=== PATIENT | male | born 1940 | race Caucasian/White ===

== ENCOUNTER → 2019-01-22 | Outpatient (CLI) | payer MEDICARE, OTHER | END | disposition home or self-care (01) | LOC: PCVCCLINIC 10:00 | PROVIDERS: ATTEND Internal Medicine | DX: I25.10 Atherosclerotic heart disease of native coronary artery without angina pectoris (principal); E78.5 Hyperlipidemia, unspecified; I71.4 Abdominal aortic aneurysm, without rupture; I12.9 Hypertensive chronic kidney disease with stage 1 through stage 4 chronic kidney disease, or unspecified chronic kidney disease; N18.9 Chronic kidney disease, unspecified; J45.909 Unspecified asthma, uncomplicated; Z79.82 Long term (current) use of aspirin; Z88.5 Allergy status to narcotic agent | CPT/HCPCS: 36415; 80061; 93005; G0463 ==

== ENCOUNTER → 2019-02-25 | Outpatient (CLI) | payer MEDICARE, OTHER ==
[~2019-02-25] MED LIST: REGADENOSON 0.4 MG/5 ML DISP.SYRIN. IV ONE
--- NOTE | 2019-02-25 10:07 | PCVCIMAG ---
APPROVED REPORT Indications Stenosis Risk Factors Hyperlipidemia Doppler Spectral Velocity Analysis PSV / EDVPSV / EDV ECA (R) 92 / 10 cm/sECA (L) 75 / 2 cm/s dICA (R) 77 / 26 cm/sdICA (L) 83 / 16 cm/s Karuna (R) 61 / 22 cm/smICA (L) 150 / 32 cm/s pICA (R) 61 / 19 cm/spICA (L) 165 / 48 cm/s Bulb (R) 69 / 10 cm/sBulb (L) 54 / 12 cm/s dCCA (R) 72 / 12 cm/sdCCA (L) 69 / 13 cm/s mCCA (R) 69 / 10 cm/smCCA (L) 91 / 13 cm/s Vert (R) 24 / 6 cm/sVert (L) 37 / 8 cm/s ICA/CCA 1.07 ICA/CCA 1.81 Basic Measurements Blood Pressure: Pulses: Right Left RightLeft Brachial(Sitting) 146/46beEi492/80mmHgTemporal Real Time B-Mode Imaging Vert. (R)AntegradeVert. (L)Antegrade Findings The right carotid bulb has mild plaque. The right proximal internal carotid artery shows <20% stenosis. The right common carotid artery shows no significant stenosis. The right external carotid artery shows no significant stenosis. The left carotid bulb has moderately severe plaque. The left proximal internal carotid artery shows 60-70% stenosis. The left common carotid artery shows no significant stenosis. The left external carotid artery shows no significant stenosis. Conclusion 1. Right internal carotid artery plaquing (<20% stenosis) 2. Left internal carotid artery stenosis (60-70%) 3. Antegrade vertebral flow. Similar to a study dated May 2017.
--- NOTE | 2019-02-25 11:17 | PCVCIMAG ---
APPROVED REPORT Study performed: 02/25/2019 09:58:13 EXAM: Comprehensive 2D, Doppler, and color-flow Echocardiogram Patient Location: Echo lab Status: routine BSA: 2.01 HR: 51 bpm Rhythm: Bradycardia Other Information Study Quality: Adequate Risk Factors: Cardiac Risk Factors: Hyperlipidemia, HTN Indications CAD 2D Dimensions IVSd: 13.74 (7-11mm)LVOT Diam: 24.00 (18-24mm) LVDd: 41.53 mm PWd: 13.96 (7-11mm) LVDs: 28.01 (25-40mm) Left Atrium: 43.04 (27-40mm) Aortic Root: 39.08 mm LV Single Plane 4CH: 66.23 % LV Single Plane 2CH: 70.57 % Biplane EF: 70.4 % Volumes Left Atrial Volume (Systole) Single Plane 4CH: 48.62 mLSingle Plane 2CH: 45.49 mL LA ESV Index: 25.00 mL/m2 Aortic Valve AoV Peak Randy.: 1.38 m/s AO Peak Gr.: 7.58 mmHgLVOT Max P.70 mmHg LVOT Max V: 0.82 m/s OBI Vmax: 2.60 cm2 Mitral Valve E/A Ratio: 0.8 MV Decel. Time: 275.64 ms MV E Max Randy.: 0.72 m/s MV A Randy.: 0.87 m/s IVRT: 78.43 ms TDI E/Lateral E': 14.40E/Medial E': 14.40 Medial E' Randy.: 0.05 m/s Lateral E' Randy.: 0.05 m/s Pulmonary Valve PV Peak Randy.: 0.96 m/sPV Peak Gr.: 3.71 mmHg Pulmonary Vein P Vein S: 0.63 m/sP Vein A: 0.40 m/s P Vein D: 0.47 m/sP Vein A Dur.: 115.3 msec P Vein S/D Ratio: 1.34 Tricuspid Valve TR Peak Randy.: 2.30 m/sRAP Estimate: 7.00 mmHg TR Peak Gr.: 21.25 mmHg PA Pressure: 28.00 mmHg Left Ventricle The left ventricle is normal size. There is normal LV segmental wall motion. Mild concentric left ventricular hypertrophy. Left ventricular systolic function is normal. The left ventricular ejection fraction is within the normal range. LVEF is 60-65%. Mild diastolic dysfunction is present (impaired relaxation pattern). Right Ventricle The right ventricle is normal size. The right ventricular systolic function is normal. Atria The left atrium size is normal. The right atrium size is normal. Aortic Valve The aortic valve is mildly sclerotic. No aortic regurgitation is present. There is no aortic valvular stenosis. Mitral Valve Mild-moderate mitral annular calcification There is no mitral valve regurgitation noted. No evidence of mitral valve stenosis. Tricuspid Valve The tricuspid valve is normal in structure. Trace tricuspid regurgitation. Pulmonary artery pressure is 28 mmHg. Pulmonic Valve The pulmonary valve is normal in structure. Trace pulmonic regurgitation. Great Vessels The aortic root is mildly dilated at 3.9 cm. IVC is normal in size and collapses >50% with inspiration. Pericardium There is no pericardial effusion. <Conclusion> Left ventricular systolic function is normal. There is normal LV segmental wall motion. Mild LVH LVEF is 60-65%. Mild diastolic dysfunction The aortic valve is mildly sclerotic. No aortic regurgitation or stenosis. Mild-moderate mitral annular calcification. No mitral valve regurgitation. Trace tricuspid regurgitation. Pulmonary artery pressure of 28 mmHg. There is no pericardial effusion.
--- NOTE | 2019-02-25 15:51 | PCVCIMAG ---
APPROVED REPORT Imaging Protocol: Rest Tc-99m/Stress Tc-99m 1 day Study performed: 02/25/2019 11:42:58 Indication: CAD Patient Location: Out-Patient Stress Nurse: Zoila Javier RN, Flora Gayle RN [place] Tech:Ruby GonzalezALETHEA barronMT Ht: 6 ft 0 in Wt: 175 lbs BSA: 2.01 m2 HR: 52 bpm BP: 180/88 mmHg BMI: 23.7 Rhythm: Sinus Bradycardia, RBBB Medical History Medical History: Hyperlipidemia, HTN, CVD, PVD, CKD, CAD Medications: ASA, Lisinopril, Metoprolol Allergies: NSAIDS Cardiac Risk Factors: Age, FHX of CAD Pretest Chest Pain Characteristics: No chest pain Exercise History: Physically active Resting Data Rest SPECT myocardial perfusion imaging was performed in supine position 45 minutes following the intravenous injection of 11 mCi of Tc-99m Sestamibi. Time of rest injection: 1050 Date: 02/25/2019 Administration Route: IV Administration Site: Right AC Pharmacologic Stress Pharmacologic stress test was performed by injecting Regadenoson 0.4 mg IV push over 10-15 seconds immediately followed by the intravenous injection of 32.4 mCi of Tc-99m Sestamibi. Time of stress injection: 1215 Date: 02/25/2019 Administration Route: IV Administration Site: Right AC Gated Stress SPECT was performed 45 minutes after stress injection. The images were gated to evaluate regional wall motion and calculate left ventricular ejection fraction. Stress Test Details Stress Test: Pharmacologic stress testing performed using 0.4 mg of regadenoson per 5 mL given IV over 10 seconds. Reason for pharmacologic stress test: physical limitation. HRMax Heart Rate (APMHR): 142 bpm Resting HR: 52 bpmTarget HR (85% APMHR): 120 bpm Max HR Achieved: 77 bpm % of APMHR: 54 Recovery HR: 81 bpm BP Resting BP: 180/88 mmHg Max BP: 148/88 mmHg Recovery BP: 172/86 mmHg ECG Resting ECG: Sinus Bradycardia, RBBB Stress ECG: Sinus Rhythm, RBBB ST Change: None Maximum ST Deviation: 0 mm Arrhythmia: PVC Recovery ECG: Sinus Rhythm, RBBB Recovery ST Change: None Recovery ST Deviation: 0 mm Recovery Arrhythmia: None Clinical Reason for Termination: Completed protocol Stress Symptoms: Dyspnea Exercise duration: min 55 sec Symptoms resolved with caffeine. Stress ECG Conclusion ECG: Non-ischemic Clinical: Non-ischemic Study Quality Study: Good Artifact: Moderate Diaphragmatic artifact Study Data Post stress, the left ventricular ejection was 63%.. SSS: 0 SRS: 0 SDS: 0 TID = 0.95. Perfusion No evidence of stress induced ischemia or prior myocardial infarction. Wall Motion Normal left ventricular size and function with no regional wall motion abnormalities. Nuclear Conclusion No evidence of stress induced ischemia or prior myocardial infarction. Normal left ventricular size and function with no regional wall motion abnormalities. Post stress, the left ventricular ejection was 63%. No prior study available for comparison. Interpreted by: Keaton Singleton MD Electronically Approved: 02/25/2019 14:26:01 <Conclusion> ECG: Non-ischemic Clinical: Non-ischemic
--- NOTE | 2019-02-25 18:00 | PCVCIMAG ---
EXAM: AORTOILIAC DUPLEX INDICATION: Aortic aneurysm. FINDINGS: AORTA: Suprarenal aorta measures maximum diameter of 2.7 cm. There is a fusiform infrarenal aortic aneurysm. The infrarenal aorta measures maximum diameter of 3.5 cm. No aortic stenosis. RIGHT COMMON ILIAC ARTERY: Maximum diameter is 1.8 cm. No significant stenosis. RIGHT EXTERNAL ILIAC ARTERY: No significant stenosis. LEFT COMMON ILIAC ARTERY: Maximum diameter is 1.7 cm. No significant stenosis. LEFT EXTERNAL ILIAC ARTERY: No significant stenosis. IMPRESSION: 3.5 cm abdominal aortic aneurysm compares to 3.4 cm on May 2017 study. Ectasia of the common iliac arteries. LOC:[id number]
== END | disposition home or self-care (01) ==
LOC: PCVCIMAG 08:31
PROVIDERS: ATTEND Internal Medicine
DX: I65.23 Occlusion and stenosis of bilateral carotid arteries (principal); I71.4 Abdominal aortic aneurysm, without rupture; E78.5 Hyperlipidemia, unspecified; I25.10 Atherosclerotic heart disease of native coronary artery without angina pectoris; I08.0 Rheumatic disorders of both mitral and aortic valves
CPT/HCPCS: 78452; 93017; 93306; 93880; 93978; A9500; J2785